=== PATIENT | female | born 1995 | race Two or more races ===

== ENCOUNTER 2024-01-23 17:33 | Emergency (ER) | payer SELFPAY ==
[~2024-01-23] VITALS: Ht 157.5 cm; Wt 78.0 kg
[2024-01-23 18:34] LABS: Urine Bacteria None Seen /hpf (None Seen)
[2024-01-23 19:00] LABS: Urine Blood 3+ /uL (Negative); Urine Clarity Ex.Turbid (Clear); Urine Color Light-Brown (Yellow); Urine Mucus FEW (None Seen); Urine Protein, UAD 2+ (Negative); Urine Specific Gravity 1.022 (1.001-1.035); Urine Urobilinogen Normal (Negative); Urine WBC 855 /hpf (0 - 5); Urine WBC Clumps PRESENT /hpf (None Seen); Urine pH 6.5 (5.0-9.0)
[2024-01-23 19:17] LABS: Basophils # (auto) 0.1 10 ^3/uL (0-0.2); Basophils % (auto) 0.5 % (0.0-2.0); Eosinophils # (auto) 0 10 ^3/uL (0-0.8); Eosinophils % (auto) 0.2 % (0.0-7.0); Hematocrit 44.7 % (36.0-46.0); Hemoglobin 15.2 g/dL (12.2-16.2); Lymphocytes # (auto) 2.1 10 ^3/uL (0.4-5.4); Lymphocytes % (auto) 13.1 % (10.0-50.0); Mean Corpuscular Hemoglobin 29.6 pg (28.0-32.0); Mean Corpuscular Volume 86.9 fL (80.0-100.0); Monocytes # (auto) 0.8 10 ^3/uL (0-1.3); Monocytes % (auto) 5.1 % (0.0-12.0); Neutrophils # (auto) 13.2 10 ^3/uL (1.6-8.6); Neutrophils % (auto) 81.1 % (37.0-80.0); Nucleated Red Blood Cells % 0.1 %; Red Blood Cells 5.14 10^6/uL (4.0-5.20); Red Cell Distribution Width 12.9 % (11.8-14.3); White Blood Cell 16.3 10^3/uL (4.4-10.8)
[2024-01-23 19:24] LABS: Chloride 106 mmol/L (98-107); Potassium 3.9 mmol/L (3.5-5.1); Sodium 140 mmol/L (136-145)
[2024-01-23 19:25] LABS: Anion Gap 12 (5-15); Calcium 9.9 mg/dL (8.7-10.4); Carbon Dioxide 22 mmol/L (20-30)
[2024-01-23 19:30] LABS: Glucose 94 mg/dL (74-106)
[2024-01-23 19:31] LABS: BUN/Creatinine Ratio 15.2 (10.0-20.0); Blood Urea Nitrogen 10 mg/dL (9-23)
[2024-01-23] MEDS ORDERED: NITR-87 PO (19:35)
[2024-01-23 20:15] VITALS: BP 112/78; TEMP 98.2
[2024-01-23 20:16] VITALS: PULSE 97; RESP 16; O2SAT 98
[2024-01-23] MEDS: cefTRIAXone SOD 1,000 MG VL IM ONE (20:25)
== END 2024-01-23 20:24 | disposition home or self-care (01) ==
LOC: ER 17:33
DX: N39.0 Urinary tract infection, site not specified (principal)
CPT/HCPCS: 36415; 80048; 81001; 85025; 96372; 99283; J0696